=== PATIENT | male | born 1960 | race Caucasian/White ===

== ENCOUNTER 2018-03-11 10:53 | Emergency (ER) | payer OTHER ==
[~2018-03-11] VITALS: Ht 180.3 cm; Wt 81.6 kg
[2018-03-11 10:57] VITALS: BP 145/99
--- NOTE | 2018-03-11 11:32 | NUR ---
pt brought in from [facility] by [employer] for left hip pain. According to belle officer pt had the pain onging since before being booked. pt alert with orientation x 3.
== END 2018-03-11 12:20 ==
LOC: ER 10:56
DX: M25.552 Pain in left hip (principal)
CPT/HCPCS: 73502; A4606; Z7610